=== PATIENT | female | born 1965 | race Caucasian/White ===

== ENCOUNTER 2017-08-19 08:47 | Day surgery (SDC) | payer MEDICARE ==
[~2017-08-19] VITALS: Ht 167.6 cm; Wt 154.2 kg
[~2017-08-19 08:47] MED LIST: ALBU90OI6 INH; ALBU90OI61 INH; ALLER-TEC PO; ASPI81CH PO; Aspirin EC81 MG PO; CALCIT950 PO; CEFD300 PO; CHOL10002 PO; CYCL10 PO; DOCU100 PO; DULO30 PO; DULO60 PO; ESCI20 PO; EVOXAC PO; Evoxac30 MG PO; FENT50TP TOP; FEXO60 PO; FLUC100 PO; Flovent 110 MCG12 GM INH; HYDCHL25 PO; HYDHCL25 PO; IBUP800 PO; KRILL OIL500 MG PO; LORA.5 PO; MICARDIS PO; MONT10T PO; NAPR220 PO; OXYACE5T PO; OXYC5 PO; OXYMORPHONE HCL5 M1 PO; PILO5 PO; PREG100 PO; PREG75 PO; PROM25 PO; Prilosec Otc20 MG PO; TELM40 PO; TIZANIDINE HCL2 MG PO; TOCO400 PO; TRAZ100 PO; Tizanidine HCl2 MG PO; [UNRECOGNIZED DRUG - REMARK] INH
[2018-05-10] MEDS ORDERED: TELM40 PO (22:45)
[2018-05-10] MEDS ORDERED: PREG200 PO (22:45)
[2018-05-10] MEDS ORDERED: DULO60 PO (22:46)
[2018-05-10] MEDS ORDERED: [UNRECOGNIZED DRUG - OTHER] PO (22:46)
[2018-05-10] MEDS ORDERED: MELA3 PO (22:47)
[2018-05-10] MEDS ORDERED: BOSWELLIA SERRAT1 GM (22:47)
[2018-05-10] MEDS ORDERED: MONT10T PO (22:47)
[2018-05-10] MEDS ORDERED: BUDE6HFA (22:48)
[2018-05-10] MEDS ORDERED: CETI5 (22:48)
[2018-05-10] MEDS ORDERED: Silvadene20 GM TOP (23:00)
[2018-05-10] MEDS ORDERED: ANASTIA15 GM TOP (23:02)
[2018-06-19] MEDS ORDERED: Prednisone20 MG PO (20:57)
== END 2017-08-19 22:35 | disposition home or self-care (01) ==
LOC: ORSCMMR 08:47
DX: Z12.11 Encounter for screening for malignant neoplasm of colon (principal); K63.5 Polyp of colon; K64.4 Residual hemorrhoidal skin tags; K57.30 Diverticulosis of large intestine without perforation or abscess without bleeding; K21.9 Gastro-esophageal reflux disease without esophagitis; E66.01 Morbid (severe) obesity due to excess calories; Z68.43 Body mass index [BMI] 50.0-59.9, adult; J45.909 Unspecified asthma, uncomplicated; M35.00 Sjogren syndrome, unspecified; I10 Essential (primary) hypertension; F32.9 Major depressive disorder, single episode, unspecified; Z79.899 Other long term (current) drug therapy
CPT/HCPCS: 88305; J7120

== ENCOUNTER 2017-09-08 20:24 | Emergency (ER) | payer MEDICARE ==
[~2017-09-08] VITALS: Ht 167.6 cm; Wt 158.8 kg
[2017-09-08 21:44] LABS: BASOPHILS ABSOLUTE AUTO 0.04 K/mm3 (0.00-0.23); BASOPHILS PERCENT AUTO 0 % (0-2); EOSINOPHILS ABSOLUTE AUTO 0.01 K/mm3 (0.00-0.68); EOSINOPHILS PERCENT AUTO 0 % (0-6); Hematocrit 44.7 % (33.0-51.0); Hemoglobin 14.5 g/dL (11.5-16.0); IMMATURE GRAN ABSOLUTE AUTO 0.04 K/mm3 (0.00-0.10); IMMATURE GRAN PERCENT AUTO 0 % (0-1); LYMPHOCYTES PERCENT AUTO 22 % (21-46); MONOCYTES ABSOLUTE AUTO 0.79 K/mm3 (0.16-1.47); MONOCYTES PERCENT AUTO 9 % (4-13); Mean Corpuscular HGB 29.6 pg (26.0-34.0); Mean Corpuscular HGB Conc 32.4 g/dL (31.5-36.5); Mean Corpuscular Volume 91 fL (80-100); Mean Platelet Volume 10.9 fL (9.1-12.4); NEUTROPHILS ABSOLUTE AUTO 6.07 K/mm3 (1.96-9.15); NEUTROPHILS PERCENT AUTO 68 % (41-73); Platelet Count 225 K/mm3 (150-400); RDW Standard Deviation 43.8 fL (35.1-46.3); White Blood Cell Count 8.95 K/mm3 (4.00-11.30)
[2017-09-08 22:20] LABS: Alanine Aminotransfer (ALT/SGP 30 U/L (12-78); Albumin, Blood 3.4 g/dL (3.4-5.0); Albumin/Globulin Ratio 0.7 (0.8-1.8); Alk Phos 65 U/L (50-136); Anion Gap 9 mmol/L (6-16); Aspartate Aminotrans (AST/SGOT 30 U/L (12-37); Bilirubin, Total 0.4 mg/dL (0.1-1.0); Blood Urea Nitrogen 11 mg/dL (8-24); CO2, Blood 25 mmol/L (21-32); Calcium, Blood 8.8 mg/dL (8.5-10.1); Chloride, Blood 105 mmol/L (98-108); Creatinine, Blood 0.79 mg/dL (0.40-1.00); Globulin, Blood 5.1 g/dL (2.2-4.0); Glomerular Filtration Rate >60 (60-); Glucose, Blood 144 mg/dL (70-99); Potassium, Blood 3.6 mmol/L (3.5-5.5); Sodium, Blood 139 mmol/L (136-145); Total Protein, Blood 8.5 g/dL (6.4-8.2); Troponin I <0.015 ng/mL (0.000-0.040)
[2017-09-08] MEDS ORDERED: Prednisone20 MG PO (22:45)
[2017-09-08] MEDS ORDERED: EPIPEN 2-P0.3 MG/0.3 IM (22:45)
[2018-05-10] MEDS ORDERED: PREG200 PO (22:45)
[2018-05-10] MEDS ORDERED: TELM40 PO (22:45)
[2018-05-10] MEDS ORDERED: DULO60 PO (22:46)
[2018-05-10] MEDS ORDERED: [UNRECOGNIZED DRUG - OTHER] PO (22:46)
[2018-05-10] MEDS ORDERED: BOSWELLIA SERRAT1 GM (22:47)
[2018-05-10] MEDS ORDERED: MELA3 PO (22:47)
[2018-05-10] MEDS ORDERED: MONT10T PO (22:47)
[2018-05-10] MEDS ORDERED: CETI5 (22:48)
[2018-05-10] MEDS ORDERED: BUDE6HFA (22:48)
[2018-05-10] MEDS ORDERED: Silvadene20 GM TOP (23:00)
[2018-05-10] MEDS ORDERED: ANASTIA15 GM TOP (23:02)
[2018-06-19] MEDS ORDERED: Prednisone20 MG PO (20:57)
== END 2017-09-08 23:03 | disposition home or self-care (01) ==
LOC: ER 20:24
PROVIDERS: Emergency Medicine
DX: T78.2XXA Anaphylactic shock, unspecified, initial encounter (principal); Z88.0 Allergy status to penicillin; Z91.030 Bee allergy status; Z88.8 Allergy status to other drugs, medicaments and biological substances; Z88.1 Allergy status to other antibiotic agents; Z79.899 Other long term (current) drug therapy; Z79.52 Long term (current) use of systemic steroids; J45.909 Unspecified asthma, uncomplicated
CPT/HCPCS: 80053; 84484; 85025; 93005; 93010; 96361; 96372; 96374; 96375; 99284; J0171; J1200; J2930; J3490; J7030

== ENCOUNTER 2018-01-12 23:57 | Emergency (ER) | payer MEDICARE ==
[~2018-01-12] VITALS: Ht 167.6 cm; Wt 154.2 kg
[~2018-01-12 23:57] MED LIST changes: +EPIPEN 2-P0.3 MG/0.3 IM; +Prednisone20 MG PO
== END 2018-01-13 01:45 | disposition home or self-care (01) ==
LOC: ER 23:57
DX: T78.2XXA Anaphylactic shock, unspecified, initial encounter (principal); Z88.8 Allergy status to other drugs, medicaments and biological substances; Z91.030 Bee allergy status; Z88.1 Allergy status to other antibiotic agents; Z79.899 Other long term (current) drug therapy; Z79.52 Long term (current) use of systemic steroids; J45.909 Unspecified asthma, uncomplicated
CPT/HCPCS: 36415; 94640; 96374; 96375; 99283-25; J1200; J2405; J2930; J3490; J7030

== ENCOUNTER → 2018-07-08 | Outpatient (CLI) | payer MEDICARE ==
[~2018-07-08] MED LIST changes: +ANASTIA15 GM TOP; +BOSWELLIA SERRAT1 GM; +BUDE6HFA; +CETI5; +MELA3 PO; +PREG200 PO; +Silvadene20 GM TOP; +[UNRECOGNIZED DRUG - OTHER] PO
== END | disposition home or self-care (01) ==
LOC: LAB SHORT 05:00 → LAB 05:00
PROVIDERS: Internal Medicine Hematology & Oncology
DX: D47.2 Monoclonal gammopathy (principal)
CPT/HCPCS: 81050

== ENCOUNTER → 2019-02-08 | Outpatient (CLI) | payer MEDICARE ==
[~2019-02-08] MED LIST changes: +Motion Sickness25 M1 PO
[2019-02-10 00:06] LABS: HIV SCREEN 4TH GENERATION WRFX Non Reactive (Non Reactive)
[2019-02-11 00:06] LABS: CHLAMYDIA TRACHOMATIS, NAA Negative (Negative); NEISSERIA GONORRHOEAE, NAA Negative (Negative)
== END | disposition home or self-care (01) ==
LOC: LAB 15:02 → LAB SHORT 15:02
PROVIDERS: Physician Assistant
DX: N72 Inflammatory disease of cervix uteri (principal)
CPT/HCPCS: 86592; 87389; 87491; 87591

== ENCOUNTER 2019-04-19 13:21 | Emergency (ER) | payer MEDICARE ==
[~2019-04-19] VITALS: Ht 165.1 cm; Wt 142.0 kg
[~2019-04-19 13:21] MED LIST changes: -Motion Sickness25 M1 PO
[2019-04-19 14:40] LABS: BASOPHILS ABSOLUTE AUTO 0.03 K/mm3 (0.00-0.23); BASOPHILS PERCENT AUTO 0 % (0-2); EOSINOPHILS PERCENT AUTO 0 % (0-6); Hematocrit 47.6 % (33.0-51.0); Hemoglobin 15.4 g/dL (11.5-16.0); IMMATURE GRAN ABSOLUTE AUTO 0.02 K/mm3 (0.00-0.10); IMMATURE GRAN PERCENT AUTO 0 % (0-1); LYMPHOCYTES ABSOLUTE AUTO 2.27 K/mm3 (0.84-5.20); LYMPHOCYTES PERCENT AUTO 27 % (21-46); MONOCYTES ABSOLUTE AUTO 0.83 K/mm3 (0.16-1.47); MONOCYTES PERCENT AUTO 10 % (4-13); Mean Corpuscular HGB 29.2 pg (26.0-34.0); Mean Corpuscular HGB Conc 32.4 g/dL (31.5-36.5); Mean Corpuscular Volume 90 fL (80-100); Mean Platelet Volume 11.2 fL (9.1-12.4); NEUTROPHILS ABSOLUTE AUTO 5.31 K/mm3 (1.96-9.15); NEUTROPHILS PERCENT AUTO 63 % (41-73); Platelet Count 261 K/mm3 (150-400); RDW Coefficient Variation 13.9 % (11.7-14.2); RDW Standard Deviation 45.1 fL (35.1-46.3); Red Blood Cell Count 5.28 M/mm3 (3.80-5.20); White Blood Cell Count 8.46 K/mm3 (4.00-11.30)
[2019-04-19 15:01] LABS: Alanine Aminotransfer (ALT/SGP 35 U/L (12-78); Albumin, Blood 3.7 g/dL (3.4-5.0); Albumin/Globulin Ratio 0.7 (0.8-1.8); Alk Phos 85 U/L (50-136); Anion Gap 7 mmol/L (6-16); Aspartate Aminotrans (AST/SGOT 30 U/L (12-37); Bilirubin, Total 0.5 mg/dL (0.1-1.0); Blood Urea Nitrogen 9 mg/dL (8-24); Bun/Creatinine Ratio 10.7 (12.0-20.0); CO2, Blood 27 mmol/L (21-32); Calcium, Blood 9.1 mg/dL (8.5-10.1); Chloride, Blood 105 mmol/L (98-108); Creatinine, Blood 0.84 mg/dL (0.40-1.00); Globulin, Blood 5.2 g/dL (2.2-4.0); Glomerular Filtration Rate >60 (60-); Glucose, Blood 98 mg/dL (70-99); Potassium, Blood 4.1 mmol/L (3.5-5.5); Sodium, Blood 139 mmol/L (136-145); Total Protein, Blood 8.9 g/dL (6.4-8.2)
[2019-04-19] MEDS ORDERED: Motion Sickness25 M1 PO (20:10)
== END 2019-04-19 20:34 | disposition home or self-care (01) ==
LOC: ER 13:21
PROVIDERS: Physician Assistant
DX: R42 Dizziness and giddiness (principal); R51 Headache; Z91.030 Bee allergy status; Z88.0 Allergy status to penicillin; Z88.1 Allergy status to other antibiotic agents; Z79.899 Other long term (current) drug therapy; Z79.891 Long term (current) use of opiate analgesic; I10 Essential (primary) hypertension
CPT/HCPCS: 36415; 70450; 80053; 84484; 85025; 93005; 93010; 96361; 96374; 96375; 99285-25; J0780; J1200; J2405; J7030

== ENCOUNTER → 2019-10-16 | Outpatient (CLI) | payer MEDICARE ==
[~2019-10-16] MED LIST changes: +Aspir 8181 MG PO; +Ativan1 MG PO; +BIOTIN1 MG PO; -BOSWELLIA SERRAT1 GM; +BOSWELLIA SERRAT1 GM PO; +BUDE6HFA INH; -CETI5; +CETI5 PO; +FISH OIL 1,0001 EAC1 PO; +Motion Sickness25 M1 PO; +NAPR500 PO; +OMEPRAZOLE20 MG PO
[2019-10-16 18:15] LABS: BASOPHILS ABSOLUTE AUTO 0.05 K/mm3 (0.00-0.23); BASOPHILS PERCENT AUTO 1 % (0-2); EOSINOPHILS ABSOLUTE AUTO 0.01 K/mm3 (0.00-0.68); EOSINOPHILS PERCENT AUTO 0 % (0-6); Hemoglobin 14.8 g/dL (11.5-16.0); IMMATURE GRAN ABSOLUTE AUTO 0.05 K/mm3 (0.00-0.10); IMMATURE GRAN PERCENT AUTO 1 % (0-1); LYMPHOCYTES ABSOLUTE AUTO 3.14 K/mm3 (0.84-5.20); LYMPHOCYTES PERCENT AUTO 34 % (21-46); MONOCYTES ABSOLUTE AUTO 0.68 K/mm3 (0.16-1.47); MONOCYTES PERCENT AUTO 7 % (4-13); Mean Corpuscular HGB 29.7 pg (26.0-34.0); Mean Corpuscular HGB Conc 33.6 g/dL (31.5-36.5); Mean Corpuscular Volume 88 fL (80-100); Mean Platelet Volume 10.8 fL (9.1-12.4); NEUTROPHILS ABSOLUTE AUTO 5.37 K/mm3 (1.96-9.15); NEUTROPHILS PERCENT AUTO 58 % (41-73); Platelet Count 295 K/mm3 (150-400); RDW Coefficient Variation 13.5 % (11.7-14.2); RDW Standard Deviation 43.5 fL (35.1-46.3); Red Blood Cell Count 4.98 M/mm3 (3.80-5.20)
[2019-10-16 18:26] LABS: Albumin, Blood 3.6 g/dL (3.4-5.0); Albumin/Globulin Ratio 0.8 (0.8-1.8); Bilirubin, Total 0.3 mg/dL (0.1-1.0); Bun/Creatinine Ratio 15.5 (12.0-20.0); Calcium, Blood 8.6 mg/dL (8.5-10.1); Creatinine, Blood 1.1 mg/dL (0.40-1.00); Globulin, Blood 4.7 g/dL (2.2-4.0); Potassium, Blood 3.2 mmol/L (3.5-5.5); Total Protein, Blood 8.3 g/dL (6.4-8.2)
== END ==
LOC: LAB EV 18:11 → LAB SHORT 18:11
PROVIDERS: Emergency Medicine
DX: J20.9 Acute bronchitis, unspecified (principal)
CPT/HCPCS: 80053; 85025

== ENCOUNTER 2020-12-13 17:38 | Emergency (ER) | payer MEDICARE, OTHER ==
[~2020-12-13] VITALS: Ht 167.6 cm; Wt 149.7 kg
[2020-12-13] MEDS ORDERED: ACULAR5 ML LEFTEYE (18:27)
== END 2020-12-13 18:46 | disposition home or self-care (01) ==
LOC: ER 17:38
DX: T26.02XA Burn of left eyelid and periocular area, initial encounter (principal); I10 Essential (primary) hypertension; K21.9 Gastro-esophageal reflux disease without esophagitis; Z79.899 Other long term (current) drug therapy; Z88.0 Allergy status to penicillin; Z88.1 Allergy status to other antibiotic agents
CPT/HCPCS: 99283; A9270

== ENCOUNTER 2022-02-09 19:38 | Emergency (ER) | payer MEDICARE, OTHER ==
[~2022-02-09] VITALS: Ht 165.1 cm; Wt 104.3 kg
[~2022-02-09 19:38] MED LIST changes: +ACULAR5 ML LEFTEYE; -BUDE6HFA INH; +BUSPIRONE HCL30 M1 PO; +CLOTRIMAZOLE10 M2 PO; +GABA100 PO; -OXYMORPHONE HCL5 M1 PO; +OXYMORPHONE HCL5 MG PO; +Prozac20 MG PO; +SYMBICORT 160-4.6 GM INH; +TIZA4 PO; -Tizanidine HCl2 MG PO
== END 2022-02-09 20:49 | disposition home or self-care (01) ==
LOC: ER 19:38
DX: M54.32 Sciatica, left side (principal); I10 Essential (primary) hypertension; K21.9 Gastro-esophageal reflux disease without esophagitis; E78.5 Hyperlipidemia, unspecified; Z79.899 Other long term (current) drug therapy; Z88.5 Allergy status to narcotic agent; Z88.0 Allergy status to penicillin; Z88.8 Allergy status to other drugs, medicaments and biological substances; Z88.1 Allergy status to other antibiotic agents; Z91.038 Other insect allergy status
CPT/HCPCS: J1885

== ENCOUNTER → 2022-04-20 | Outpatient (CLI) | payer MEDICARE, OTHER ==
[2022-04-21 10:37] LABS: SARS-Cov-2 (COVID-19) PCR, MMC NEGATIVE (NEGATIVE)
== END ==
LOC: LAB 14:10 → LAB SHORT 14:10
PROVIDERS: Physician Assistant
DX: Z20.822 Contact with and (suspected) exposure to COVID-19 (principal)
CPT/HCPCS: U0004

== ENCOUNTER → 2022-07-31 | Outpatient (CLI) | payer MEDICARE ==
[~2022-07-31] MED LIST changes: +ABILIFY MYCITE2 M2 PO; +ONDA4ODT SL; +Prozac40 MG PO
== END | disposition home or self-care (01) ==
LOC: LAB SHORT 16:57
DX: R32 Unspecified urinary incontinence (principal)
CPT/HCPCS: 87086

== ENCOUNTER → 2022-09-10 | Outpatient (CLI) | payer MEDICARE | END | disposition home or self-care (01) | LOC: LAB SHORT 19:30 | DX: N39.0 Urinary tract infection, site not specified (principal) | CPT/HCPCS: 87077; 87086; 87186 ==

== ENCOUNTER 2022-12-04 06:02 | Day surgery (SDC) | payer MEDICARE ==
[~2022-12-04] VITALS: Ht 165.1 cm; Wt 141.5 kg
[~2022-12-04 06:02] MED LIST changes: +ALPR.5; +BUPRENORPHINE HC2 MG SL; +EPIPEN0.3 MG/0.3 IM; +FAMO20 PO; +FURO40 PO; +POTA10T PO; +RIZATRIPTAN10 MG SL; +SYMBICORT 160-4.6 GM; +THERA-D2000 UNIT PO
[2022-12-04 07:52] VITALS: BP 106/66
[2022-12-04 09:09] VITALS: BP 113/48
[2022-12-04 09:25] VITALS: BP 139/51
--- NOTE | 2022-12-04 09:28 | NUR ---
12/04/22 0928 Aurea Taveras MONITOR INTACT WITH CONTINUOUS PULSE OXIMETRY, CONTINUOUS END TITAL CO2, AND INTERMITTENT BLOOD PRESSURE AT START OF PROCEDURE.
--- NOTE | 2022-12-04 09:44 | NUR ---
DISCHARGE SUMMARY PT A&OX4, VSS/RA, KONSTANTIN PO H20, TCDB EDU/ENC/DEMONSTRATED, DRESSED SELF, IV DC'D, BANK OFFICER AT BEDSIDE. DC INS PROVIDED. PT REP UNDERSTANDING THOSE INSTRUCTIONS INCLUDING 5 YR COLONOSCOPY, HIGH FIBER DIET.
== END 2022-12-04 23:48 | disposition home or self-care (01) ==
LOC: ORSCMMR 06:02 → ORD 08:00 → ORSCMMR 08:00
PROVIDERS: Internal Medicine Gastroenterology
PROC: 0DJD8ZZ Inspection of Lower Intestinal Tract, Via Natural or Artificial Opening Endoscopic (ICD-10-PCS; principal; 2022-12-04 08:00)
DX: Z12.11 Encounter for screening for malignant neoplasm of colon (principal); Z86.010 Personal history of colon polyps; K57.30 Diverticulosis of large intestine without perforation or abscess without bleeding; K64.1 Second degree hemorrhoids; G47.33 Obstructive sleep apnea (adult) (pediatric); I10 Essential (primary) hypertension; K21.9 Gastro-esophageal reflux disease without esophagitis; E66.01 Morbid (severe) obesity due to excess calories; Z68.43 Body mass index [BMI] 50.0-59.9, adult; Z79.899 Other long term (current) drug therapy
CPT/HCPCS: J2370; J2405; J2704; J7120

== ENCOUNTER 2022-12-19 16:32 | Inpatient (IN) | payer MEDICARE ==
[~2022-12-19] VITALS: Ht 157.5 cm; Wt 140.1 kg
[2022-12-19 17:34] LABS: Source, Urine Voided
[2022-12-19 17:44] LABS: Appearance, Urine Cloudy (Clear); Bilirubin, Urine Neg (Neg); Blood, Urine 3+ (Neg); Color, Urine Yellow (P-Yellow); Glucose Qualitative, Urine Neg (Neg); Ketones, Urine Neg (Neg); Leukocyte Esterase, Urine 3+ (Neg); Nitrite, Urine Pos (Neg); Protein, Urine 3+ (Neg); Urobilinogen, Urine 2+ (Normal)
[2022-12-19 17:55] LABS: White Blood Cells, Urine TNTC /hpf (0-5)
[2022-12-19 17:57] LABS: Bacteria Many /hpf; Squamous Epithelial Cells Few /hpf (Few)
[2022-12-19 21:54] VITALS: BP 184/99
--- NOTE | 2022-12-20 05:42 | NUR ---
SHIFT SUMMARY: PT A&O X2-3. THIS SHIFT. PT ARRIVED TO MEDICAL FLOOR @2143 WITH AND DAUGHTER AT BEDSIDE. PT VERY ANXIOUS UPON ARRIVAL AND WHEN FAMILY LEFT. RECEIVED ORDER FOR 0.5MG PO ATIVAN ONE TIME. PT PLACED ON CAMERA FOR SAFETY DUE TO IMPULSIVITY OF GETTING OUT OF BED AND PT BEING LEGALLY BLIND W/O SUPERVISION OR HELP OF WHERE SHE WAS GOING. PT 1P ASSIST. PT USES CPAP NIGHTLY FOR SLEEP APNEA. PT BROUGHT PERSONAL FROM HOME. RT NOTIFIED AND ORDER PLACED. TELE IN PLACE RUNNING SINUS RHYTHM. FAMILY OF PT STATED PT IS AN EXTREMELY DIFFICULT IV START. IV IN LWR INFILTRATED AND REMOVED. SEVERAL STAFF MEMBERS INCLUDING LABORER GOLD LEAF AND DIGITAL COMPUTER OPERATOR ATTEMPTED TO START IV WITH VEIN FINDER AND ULTRASOUND. UNABLE TO PLACE IV. REFRIGERATION PERSON AWARE. ORDER FOR PT TO BE BLADDER SCANNED QSHIFT. PT URINE YELLOW AND CLOUDY. PT CURRENTLY IN RECLINER DUE TO BACK PAIN. PT STATES SHE PREFERS RECLINER OVER BED. CAMERA IN PLACE. CALL LIGHT IN REACH. BED IN LOWEST POSITION. WILL CONTINUE TO MONITOR.
[2022-12-20 06:19] LABS: BASOPHILS ABSOLUTE AUTO 0.03 K/mm3 (0.00-0.23); BASOPHILS PERCENT AUTO 0 % (0-2); EOSINOPHILS PERCENT AUTO 0 % (0-6); Hematocrit 34.4 % (33.0-51.0); Hemoglobin 11.4 g/dL (11.5-16.0); IMMATURE GRAN ABSOLUTE AUTO 0.07 K/mm3 (0.00-0.10); IMMATURE GRAN PERCENT AUTO 1 % (0-1); LYMPHOCYTES ABSOLUTE AUTO 1.69 K/mm3 (0.84-5.20); LYMPHOCYTES PERCENT AUTO 12 % (21-46); MONOCYTES ABSOLUTE AUTO 2.06 K/mm3 (0.16-1.47); MONOCYTES PERCENT AUTO 14 % (4-13); Mean Corpuscular HGB 29.8 pg (26.0-34.0); Mean Corpuscular HGB Conc 33.1 g/dL (31.5-36.5); Mean Corpuscular Volume 90 fL (80-100); Mean Platelet Volume 10.8 fL (9.1-12.4); NEUTROPHILS ABSOLUTE AUTO 10.78 K/mm3 (1.96-9.15); NEUTROPHILS PERCENT AUTO 74 % (41-73); Platelet Count 243 K/mm3 (150-400); RDW Coefficient Variation 13.1 % (11.7-14.2); RDW Standard Deviation 43.1 fL (35.1-46.3); Red Blood Cell Count 3.82 M/mm3 (3.80-5.20); White Blood Cell Count 14.63 K/mm3 (4.00-11.30)
[2022-12-20 06:39] LABS: Albumin, Blood 2.9 g/dL (3.4-5.0); Albumin/Globulin Ratio 0.6 (0.8-1.8); Bilirubin, Total 1.8 mg/dL (0.1-1.0); Bun/Creatinine Ratio 11.9 (12.0-20.0); Calcium, Blood 8.9 mg/dL (8.5-10.1); Creatinine, Blood 0.93 mg/dL (0.40-1.00); Globulin, Blood 4.6 g/dL (2.2-4.0); Total Protein, Blood 7.5 g/dL (6.4-8.2)
[2022-12-20 07:19] VITALS: BP 158/80
[2022-12-20 15:31] VITALS: BP 122/62
--- NOTE | 2022-12-20 17:27 | NUR ---
PT STARTED SHIFT VERY CONFUSED AND HAS CAMERA IN ROOM. PT WAS VERY HARD TO REDIRECT AND WAS VERY RESTLESS SETTING OF ALARM MANY TIMES. PT THEN FELL ASLEEP AND TOOK A VERY LONG NAP. PT WOKE UP AND NOW SEEM AOX4. PT IS NOW USING CALL LIGHT APPROPRIATELY AND MAKES SENSE WHEN SHE IS TALKING. FAMILY IS AT BEDSIDE FOR DINNER. CALL LIGHT IS WITHIN REACH WILL CONTINUE TO MONITOR.
[2022-12-20 19:21] VITALS: BP 145/77
[2022-12-21 04:15] VITALS: BP 121/62
--- NOTE | 2022-12-21 04:26 | NUR ---
SHIFT SUMMARY: PT A&O X4 THIS SHIFT. PT OCCASIONALLY FORGETFUL BUT SIGNIFICANT DIFFERENCE IN MENTATION. PT ASKING FOR MELATONIN AND PAIN MEDICATIONS AT BEGINNING OF SHIFT. CALLED DR. LIU. PT RECEIVED 3MG MELATONIN, TYLENOL, AND ZANAFLEX. PT ABLE TO SLEEP DURING THE EVENING W/O ATTEMPTS OF GETTING OUT OF BED OR DISCOMFORT. POWERGLIDE IN JEAN PIERRE FLUSHING AND DRAWING W/O COMPLICATIONS. CAMERA ON PT POSSIBLY ABLE TO COME OFF TODAY IF PT REMAINS ORIENTED. BED ALARM ON. CALL LIGHT IN REACH. BED IN LOWEST POSITION. BED ALARM ON. WILL CONTINUE TO MONITOR.
[2022-12-21 05:02] LABS: BASOPHILS ABSOLUTE AUTO 0.02 K/mm3 (0.00-0.23); BASOPHILS PERCENT AUTO 0 % (0-2); EOSINOPHILS ABSOLUTE AUTO 0.03 K/mm3 (0.00-0.68); EOSINOPHILS PERCENT AUTO 0 % (0-6); Hematocrit 30.8 % (33.0-51.0); Hemoglobin 9.7 g/dL (11.5-16.0); IMMATURE GRAN ABSOLUTE AUTO 0.05 K/mm3 (0.00-0.10); IMMATURE GRAN PERCENT AUTO 1 % (0-1); LYMPHOCYTES ABSOLUTE AUTO 1.58 K/mm3 (0.84-5.20); LYMPHOCYTES PERCENT AUTO 15 % (21-46); MONOCYTES ABSOLUTE AUTO 1.81 K/mm3 (0.16-1.47); MONOCYTES PERCENT AUTO 17 % (4-13); Mean Corpuscular HGB 29.1 pg (26.0-34.0); Mean Corpuscular HGB Conc 31.5 g/dL (31.5-36.5); Mean Corpuscular Volume 93 fL (80-100); Mean Platelet Volume 11.7 fL (9.1-12.4); NEUTROPHILS ABSOLUTE AUTO 7.22 K/mm3 (1.96-9.15); NEUTROPHILS PERCENT AUTO 67 % (41-73); Platelet Count 230 K/mm3 (150-400); RDW Coefficient Variation 13.2 % (11.7-14.2); RDW Standard Deviation 44.4 fL (35.1-46.3); Red Blood Cell Count 3.33 M/mm3 (3.80-5.20); White Blood Cell Count 10.71 K/mm3 (4.00-11.30)
--- NOTE | 2022-12-21 05:06 | NUR ---
BLADDER SCAN PRE VOID WAS 259 BLADDER SCAN POST VOID WAS 0
[2022-12-21 05:25] LABS: Bun/Creatinine Ratio 13.3 (12.0-20.0); Calcium, Blood 8.9 mg/dL (8.5-10.1); Creatinine, Blood 0.91 mg/dL (0.40-1.00); Potassium, Blood 3.5 mmol/L (3.5-5.5)
[2022-12-21 08:05] VITALS: BP 114/70
--- NOTE | 2022-12-21 16:34 | NUR ---
Upon recieving a referral for spiritual care, I visited the patient. Jesús, patient's spouse is bedside and they talk about pateint's UTI and the events that led to her hospitalization. They then share about how they met, adopted their dtr and relocated to [place]. They discuss their Protentant/Sabianist faiths and how they find peace and direction from it. I provide therapeutic listening and prayer. Patient and Jesús responded well and showed signs of being encouraged in their ricky.
[2022-12-21 16:38] VITALS: BP 118/62
--- NOTE | 2022-12-21 18:22 | NUR ---
SHIFT SUMMARY PT AOX4, INDEPENDENT IN THE ROOM. TAKEN OFF CAMERA THIS SHIFT. PT HAS A POWER GLIDE TO THE [place]. NO COMPLAINTS THIS SHIFT OTHER THAN CONCERNS ABOUT THE FOOD CONTAINING CARAGEENAN. PT HAS HER AT THE AND THEY WALKED AROUND THE FLOOR THIS SHIFT. SHE TOLERATED IT WELL. PT WORKED WITH PT AND SHE IS AT HER BASELINE. PT REMAINS ON TELE AT [facility]. WILL REPORT TO ONCOMING NURSE.
[2022-12-21 19:28] VITALS: BP 123/59
[2022-12-22 02:36] VITALS: BP 123/63
--- NOTE | 2022-12-22 02:42 | NUR ---
ASSUMED CARE HANDOFF RECEIVED FROM BRYAN SOTELO. WILL CONTINUE TO MONITOR
--- NOTE | 2022-12-22 04:24 | NUR ---
SHIFT SUMMARY ADMITTED FOR ACUTE ENCEPHALOPATHY/UTI. PLAN IS FOR DC HOME W/FAMILY. POWERGLIDE IN RUE. TELEMETRY: NSR @ 61 BPM. ON REGULAR DIET. LEGALLY BLIND. A&O X4. INDEPENDENT IN ROOM. CONTINENT. 2 LPM O2 DURING AM HOURS, CPAP @ HS. ANTIB RX ARE SCHEDULED
[2022-12-22 04:29] LABS: BASOPHILS ABSOLUTE AUTO 0.04 K/mm3 (0.00-0.23); BASOPHILS PERCENT AUTO 0 % (0-2); EOSINOPHILS ABSOLUTE AUTO 0.02 K/mm3 (0.00-0.68); EOSINOPHILS PERCENT AUTO 0 % (0-6); Hematocrit 32.1 % (33.0-51.0); Hemoglobin 10.3 g/dL (11.5-16.0); IMMATURE GRAN ABSOLUTE AUTO 0.04 K/mm3 (0.00-0.10); IMMATURE GRAN PERCENT AUTO 0 % (0-1); LYMPHOCYTES PERCENT AUTO 19 % (21-46); MONOCYTES ABSOLUTE AUTO 1.47 K/mm3 (0.16-1.47); MONOCYTES PERCENT AUTO 15 % (4-13); Mean Corpuscular HGB 29.3 pg (26.0-34.0); Mean Corpuscular HGB Conc 32.1 g/dL (31.5-36.5); Mean Corpuscular Volume 92 fL (80-100); Mean Platelet Volume 11.1 fL (9.1-12.4); NEUTROPHILS ABSOLUTE AUTO 6.21 K/mm3 (1.96-9.15); NEUTROPHILS PERCENT AUTO 65 % (41-73); Platelet Count 240 K/mm3 (150-400); RDW Coefficient Variation 13.2 % (11.7-14.2); Red Blood Cell Count 3.51 M/mm3 (3.80-5.20); White Blood Cell Count 9.58 K/mm3 (4.00-11.30)
--- NOTE | 2022-12-22 07:30 | NUR ---
ASSUMED CARE: PT INTERACTIVE WITH STAFF DURING BEDSIDE REPORT. CPAP IN PLACE. CONTINUOUS BIOX BEEPING AND NOT READING. RT AT BEDSIDE AT THIS TIME FIXING ISSUE. PT IS NSR ON TELE IN THE 60S. DENIES FURTHER NEEDS OR CONCERNS.
--- NOTE | 2022-12-22 08:07 | NUR ---
DR AVENDAÑO CAME TO SEE PT AND WAS MADE AWARE THAT SHE KEPT DESATURATING INTO THE 80S. WAS AT BEDSIDE AND EVALUATING HER AND EDUCATED PT ON INCENTIVE SPIROMETER. WITH THESE EXERCISES O2 SAT IMPROVED. PLANS FOR DC LATER THIS MORNING.
[2022-12-22 08:18] VITALS: BP 127/71
[2022-12-22] MEDS ORDERED: Cefpodoxime Pr100 MG PO (11:40)
--- NOTE | 2022-12-22 13:08 | NUR ---
DISCHARGE: PT WAS GIVEN DISCHARGE INSTRUCTIONS REGARDING NEW MEDICATIONS AND WHAT MEDICATIONS TO STOP. ADVISED PT TO DISCUSS MEDICATION REGIMEN WITH PCP IF SHE HAD ANY CONCERNS. ADVISED PT TO FOLLOW UP WITH PCP AND TO TAKE ANTIBIOTICS UNTIL GONE. IV DC'D WNL. DENIED FURTHER NEEDS OR CONCERNS. ESCORTED OUT VIA WHEEL CHAIR BY HOSPITAL STAFF
== END 2022-12-22 13:04 | disposition home or self-care (01) | DRG 872 ==
LOC: ER 16:32 → MEDS 20:47 → ENPENDDIS 12-22 11:31 → MEDS 12-22 13:04
PROVIDERS: Family Medicine; Internal Medicine; Student in an Organized Health Care Education/Training Program; ADMIT Internal Medicine
DX: A41.51 Sepsis due to Escherichia coli [E. coli] (principal); G93.49 Other encephalopathy; N39.0 Urinary tract infection, site not specified; Z68.43 Body mass index [BMI] 50.0-59.9, adult; M79.7 Fibromyalgia; M54.9 Dorsalgia, unspecified; H54.7 Unspecified visual loss; I12.9 Hypertensive chronic kidney disease with stage 1 through stage 4 chronic kidney disease, or unspecified chronic kidney disease; N18.2 Chronic kidney disease, stage 2 (mild); F41.1 Generalized anxiety disorder; J45.909 Unspecified asthma, uncomplicated; G43.909 Migraine, unspecified, not intractable, without status migrainosus; F51.5 Nightmare disorder; K21.9 Gastro-esophageal reflux disease without esophagitis; G47.30 Sleep apnea, unspecified; M35.01 Sjogren syndrome with keratoconjunctivitis; E78.5 Hyperlipidemia, unspecified; G89.4 Chronic pain syndrome; D47.2 Monoclonal gammopathy; E66.01 Morbid (severe) obesity due to excess calories; Z94.7 Corneal transplant status; Z90.49 Acquired absence of other specified parts of digestive tract; Z98.890 Other specified postprocedural states; Z88.0 Allergy status to penicillin; Z88.1 Allergy status to other antibiotic agents; Z91.030 Bee allergy status; Z88.8 Allergy status to other drugs, medicaments and biological substances; Z79.82 Long term (current) use of aspirin; Z79.899 Other long term (current) drug therapy
CPT/HCPCS: 36415; 80048; 80053; 81001; 82140; 83880; 85025; 87077; 87086; 87186; 93005; 93010; 94640; 94660; 94664; 94762; 96361; 96374; 97165; 97530; 99285-25; A9270; C1751; J0696; J1650; J2405; J7030

== ENCOUNTER → 2023-07-01 | Outpatient (CLI) | payer MEDICARE ==
[~2023-07-01] MED LIST changes: +Cefpodoxime Pr100 MG PO
[2023-07-15 07:22] LABS: HPV GENOTYPE 16 Not Detected; HPV GENOTYPE 18 Not Detected; HPV HIGH RISK Not Detected; HPV SOURCE Cervical
== END ==
LOC: LAB 17:58 → LAB SHORT 17:58
PROVIDERS: Advanced Practice Midwife
DX: Z01.419 Encounter for gynecological examination (general) (routine) without abnormal findings (principal)
CPT/HCPCS: 87624; G0123

== ENCOUNTER 2025-03-31 06:49 | Emergency (ER) | payer MEDICARE, OTHER ==
[~2025-03-31] VITALS: Ht 165.1 cm; Wt 123.4 kg
[2025-03-31] MEDS ORDERED: NS 1,000 ML IV SCH (07:40)
[2025-03-31] MEDS ORDERED: OxyCODONE 7.5 mg/Acetam 325 mg TABLET PO ONE (07:45)
[2025-03-31 08:02] LABS: BASOPHILS ABSOLUTE AUTO 0.02 K/mm3 (0.00-0.23); BASOPHILS PERCENT AUTO 0 % (0-2); EOSINOPHILS ABSOLUTE AUTO 0.06 K/mm3 (0.00-0.68); EOSINOPHILS PERCENT AUTO 1 % (0-6); Hematocrit 37.7 % (33.0-51.0); Hemoglobin 12.2 g/dL (11.5-16.0); IMMATURE GRAN ABSOLUTE AUTO 0.04 K/mm3 (0.00-0.10); IMMATURE GRAN PERCENT AUTO 0 % (0-1); LYMPHOCYTES ABSOLUTE AUTO 1.37 K/mm3 (0.84-5.20); LYMPHOCYTES PERCENT AUTO 15 % (21-46); MONOCYTES ABSOLUTE AUTO 0.90 K/mm3 (0.16-1.47); MONOCYTES PERCENT AUTO 10 % (4-13); Mean Corpuscular HGB Conc 32.4 g/dL (31.5-36.5); Mean Corpuscular Volume 92 fL (80-100); NEUTROPHILS ABSOLUTE AUTO 7.07 K/mm3 (1.96-9.15); NEUTROPHILS PERCENT AUTO 75 % (41-73); NRBC ABSOLUTE 0.00 K/mm3 (0.00-0.02); NRBC Auto 0.0 /100 WBC (0.0-0.2); Platelet Count 215 K/mm3 (150-400); RDW Coefficient Variation 14.7 % (11.7-14.2); RDW Standard Deviation 49.5 fL (35.1-46.3)
[2025-03-31 08:28] LABS: Alanine Aminotransfer (ALT/SGP 66.0 U/L (12-78); Albumin, Blood 3.3 g/dL (3.4-5.0); Albumin/Globulin Ratio 0.9 (0.8-1.8); Anion Gap 6.0 mmol/L (3-11); Aspartate Aminotrans (AST/SGOT 44.0 U/L (12-37); Bilirubin, Total 0.5 mg/dL (0.1-1.0); Blood Urea Nitrogen 17.0 mg/dL (8-24); CO2, Blood 28.0 mmol/L (21-32); Calcium, Blood 8.2 mg/dL (8.5-10.1); Chloride, Blood 105.0 mmol/L (98-108); Creatinine, Blood 0.76 mg/dL (0.40-1.00); Globulin, Blood 3.6 g/dL (2.2-4.0); Glucose, Blood 130.0 mg/dL (70-99); Potassium, Blood 4.0 mmol/L (3.5-5.5); Sodium, Blood 135.0 mmol/L (136-145); Total Protein, Blood 6.9 g/dL (6.4-8.2)
[2025-03-31 10:04] LABS: Source, Urine Clean Catch
[2025-03-31 10:14] LABS: Color, Urine Yellow (P-Yellow); Glucose Qualitative, Urine Neg (Neg); Ketones, Urine Neg (Neg); Leukocyte Esterase, Urine 1+ (Neg); Protein, Urine Neg (Neg); Specific Gravity, Urine 1.020 (1.003-1.022); Urobilinogen, Urine NORM (Normal)
[2025-03-31 10:18] LABS: Bilirubin, Urine 1+ (Neg)
[2025-03-31 10:21] LABS: Red Blood Cells, Urine Not Seen /hpf (0-2); White Blood Cells, Urine 0-2 /hpf (0-5)
[2025-03-31 10:45] VITALS: BP 128/82
== END 2025-03-31 10:58 | disposition home or self-care (01) ==
LOC: ER 06:49
PROVIDERS: Emergency Medicine
DX: S70.02XA Contusion of left hip, initial encounter (principal); I10 Essential (primary) hypertension; M79.10 Myalgia, unspecified site; E86.0 Dehydration; K21.9 Gastro-esophageal reflux disease without esophagitis; J45.909 Unspecified asthma, uncomplicated; G43.909 Migraine, unspecified, not intractable, without status migrainosus; G47.30 Sleep apnea, unspecified; Z23 Encounter for immunization; W18.30XA Fall on same level, unspecified, initial encounter; Z79.899 Other long term (current) drug therapy; Z79.51 Long term (current) use of inhaled steroids; Z79.82 Long term (current) use of aspirin; Z91.030 Bee allergy status; Z88.0 Allergy status to penicillin; Z88.1 Allergy status to other antibiotic agents; Z88.8 Allergy status to other drugs, medicaments and biological substances
CPT/HCPCS: 51798; 73502; 73562-LT; 80053; 81001; 85025; 87086; 93005; 93010; 96360; 99284-25; A9270; J7030